=== PATIENT | male | born 1965 | race Caucasian/White ===

== ENCOUNTER 2017-01-19 08:00 | Emergency (ER) | payer BC ==
[2017-01-19] MEDS ORDERED: methylPREDNISolone Sodium Succinate 125 MG/2 ML SDV IVPUSH ONE (08:07)
[2017-01-19] MEDS ORDERED: Sodium Chloride 0.9% 10 ML Syringe FLUSH PRN (08:07)
[2017-01-19] MEDS ORDERED: Famotidine 20 MG/2 ML SDV IVPUSH ONE (08:07)
[2017-01-19] MEDS ORDERED: diphenhydrAMINE 50 MG/ML SDV IVPUSH ONE (08:07)
[2017-01-19] MEDS ORDERED: Sodium Chloride 0.9% 1,000 ML IV ONE (08:08)
--- NOTE | 2017-01-19 08:15 | EDM.PDOC ---
ED HPI GENERAL MEDICAL PROBLEM - General Chief Complaint: Allergic Reaction Stated Complaint: [id number] ITCHY FACE SWELLING IN NECK Time Seen by Provider: 01/19/17 08:08 Source of Information: Reports: Patient, RN, RN Notes Reviewed History Limitations: Reports: No Limitations - History of Present Illness INITIAL COMMENTS - FREE TEXT/NARRATIVE: Pt presents to ER with c/o facial itching and swelling of the face and neck which he noticed beginning last evening. He states he had grown a stapleton and his face was beginning to itch last night. He put cortisone cream on his face and he feels that seemed to make it worse, as his face and neck are now weeping. He states he does not know if he ate something that could have caused this. He denies any knowledge of any allergies, and denies any swelling of the tongue or difficulty breathing. Onset: Gradual Onset Date: 01/18/17 Duration: Getting Worse Location: Reports: Face, Neck - Related Data Allergies Allergy/AdvReac Type Severity Reaction Status Date / Time No Known Allergies Allergy Verified 02/14/13 17:40 Home Meds: Home Meds . [No Known Home Meds] 02/14/13 [History] ED ROS ALLERGIC REACTION - Review of Systems Review Of Systems: ROS reveals no pertinent complaints other than HPI. ED EXAM GENERAL NO PERIP PULSE - Physical Exam Exam: See Below Exam Limited By: No Limitations General Appearance: Alert, WD/WN, No Apparent Distress Eye Exam: Bilateral Eye: Normal Inspection Ears: Hearing Grossly Normal, Other (external ears swollen, erythematous, weeping). No: Normal External Exam Nose: Normal Inspection Throat/Mouth: Normal Inspection, Normal Lips, Normal Voice, No Airway Compromise , Perioral Cyanosis Head: Atraumatic Neck: Full Range of Motion, Other (angioedema, erythematous, weeping) Respiratory/Chest: No Respiratory Distress, Lungs Clear, Normal Breath Sounds, No Accessory Muscle Use, Chest Non-Tender Cardiovascular: Normal Peripheral Pulses, Regular Rate, Rhythm, No Edema, No Gallop, No JVD, No Murmur, No Rub GI/Abdominal: Normal Bowel Sounds, Soft, Non-Tender (Male) Exam: Deferred Rectal (Males) Exam: Deferred Back Exam: Normal Inspection, Full Range of Motion Extremities: Normal Inspection, Normal Range of Motion Neurological: Alert, Oriented, Normal Cognition, Normal Gait, Normal Reflexes, No Motor/Sensory Deficits Psychiatric: Normal Affect, Normal Mood Skin Exam: Erythema, Other (face, neck, ears, temples erythematous, edematous, weeping serous fluid) Lymphatic: No Adenopathy Course - Vital Signs Last Recorded V/S: Last Vital Signs Temp 98.5 F 01/19/17 08:53 Pulse 72 01/19/17 08:53 Resp 16 01/19/17 08:53 BP 136/84 01/19/17 08:53 Pulse Ox 97 01/19/17 08:53 - Orders/Labs/Meds Orders: Active Orders 24 hr Category Date Time Status Peripheral IV Care [RC] . DIRECTED Care 01/19/17 08:07 Active CULTURE WOUND [RM] Stat Lab 01/19/17 08:35 Received FUNGUS SKIN CULT [MREF] Stat Lab 01/19/17 08:32 Ordered Sodium Chloride 0.9% [Saline Flush] Med 01/19/17 08:07 Active 10 ml FLUSH ASDIRECTED PRN Peripheral IV Insertion Adult [OM.PC] Stat Oth 01/19/17 08:07 Ordered Medication Orders Sodium Chloride (Saline Flush) 10 ml FLUSH ASDIRECTED PRN PRN Reason: Keep Vein Open Last Admin: 01/19/17 08:32 Dose: 10 ml Labs: Laboratory Tests 01/19/17 01/19/17 01/19/17 Range/Units 08:47 08:47 08:47 WBC 8.4 (5.0-10.0) 10^3/uL RBC 4.60 (4.6-6.2) 10^6/uL Hgb 14.2 D (14.0-18.0) g/dL Hct 42.9 (40.0-54.0) % MCV 93.3 (80-100) fL MCH 30.9 (27.0-34.0) pg MCHC 33.1 (33.0-35.0) g/dL Plt Count 216 (150-450) 10^3/uL Neut % (Auto) 69.3 (42.2-75.2) % Lymph % (Auto) 17.8 L (20.5-50.1) % [place] % (Auto) 9.8 H (2-8) % Eos % (Auto) 3.0 (1.0-3.0) % Baso % (Auto) 0.1 (0.0-1.0) % Sodium 140 (135-145) mmol/L Potassium 4.1 (3.6-5.0) mmol/L Chloride 106 (101-111) mmol/L Carbon Dioxide 27.0 (21.0-31.0) mmol/L Anion Gap 11.1 BUN 16 (7-18) mg/dL Creatinine 0.8 (0.6-1.3) mg/dL Est Cr Clr Drug Dosing 123.46 mL/min Estimated GFR (MDRD) > 60 BUN/Creatinine Ratio 20.00 Glucose 88 (74-105) mg/dL Calcium 8.4 (8.4-10.2) mg/dl Total Bilirubin 0.9 (0.2-1.0) mg/dL AST 23 (10-42) IU/L ALT 23 (10-60) IU/L Alkaline Phosphatase 44 (42-121) IU/L C-Reactive Protein 0.9 (0.0-1.3) mg/dL Total Protein 6.6 L (6.7-8.2) g/dl Albumin 3.7 (3.2-5.5) g/dl Globulin 2.9 Albumin/Globulin Ratio 1.28 Meds: Medications Generic Name Dose Route Start Last Admin Trade Name Freq PRN Reason Stop Dose Admin Sodium Chloride 10 ml 01/19/17 08:07 01/19/17 08:32 Saline Flush FLUSH 10 ml ASDIRECTED PRN Administration Keep Vein Open Discontinued Medications Generic Name Dose Route Start Last Admin Trade Name Freq PRN Reason Stop Dose Admin Diphenhydramine HCl 50 mg 01/19/17 08:07 01/19/17 08:31 Benadryl IVPUSH 01/19/17 08:08 50 mg ONETIME ONE Administration Famotidine 20 mg 01/19/17 08:07 01/19/17 08:29 Pepcid IVPUSH 01/19/17 08:08 20 mg ONETIME ONE Administration Sodium Chloride 1,000 mls @ 999 mls/hr 01/19/17 08:08 01/19/17 08:26 Normal Saline IV 01/19/17 09:08 999 mls/hr .BOLUS ONE Administration Methylprednisolone Sodium Succinate 125 mg 01/19/17 08:07 01/19/17 08:27 Solu-Medrol IVPUSH 01/19/17 08:08 125 mg ONETIME ONE Administration Departure - Departure Time of Disposition: 09:41 Disposition: Home, Self-Care 01 Condition: Fair Clinical Impression: Contact dermatitis Qualifiers: Contact dermatitis type: allergic Contact dermatitis trigger: unspecified trigger Qualified Code(s): L23.9 - Allergic contact dermatitis, unspecified cause - Discharge Information Instructions: Contact Dermatitis, [id number] Forms: ED Department Discharge Additional Instructions: RX: Bactroban If your cultures grow a fungus or bacteria, you will be notified. Follow up with your primary care facility. May dab areas of the skin with water and gauze to clean. - My Orders Last 24 Hours: My Active Orders 01/19/17 08:07 Peripheral IV Care [RC] . DIRECTED Sodium Chloride 0.9% [Saline Flush] 10 ml FLUSH ASDIRECTED PRN Peripheral IV Insertion Adult [OM.PC] Stat 01/19/17 08:32 FUNGUS SKIN CULT [MREF] Stat 01/19/17 08:35 CULTURE WOUND [RM] Stat - Assessment/Plan Last 24 Hours: My Active Orders 01/19/17 08:07 Peripheral IV Care [RC] . DIRECTED Sodium Chloride 0.9% [Saline Flush] 10 ml FLUSH ASDIRECTED PRN Peripheral IV Insertion Adult [OM.PC] Stat 01/19/17 08:32 FUNGUS SKIN CULT [MREF] Stat 01/19/17 08:35 CULTURE WOUND [RM] Stat
[2017-01-19 09:13] LABS: CHLORIDE,CL 106 mmol/L (101-111); SODIUM,NA 140 mmol/L (135-145)
== END 2017-01-19 09:55 | disposition home or self-care (01) ==
LOC: DL.ED 08:00
DX: L23.9 Allergic contact dermatitis, unspecified cause (principal)
CPT/HCPCS: 36415; 80053; 85025; 86140; 87070; 96361; 96374; 96375; 99284; J1200; J2930; J7030; J7050; 87101; 87102; S0028

== ENCOUNTER → 2020-07-07 | Day surgery (SDC) | payer BC ==
[~2020-07-07] MED LIST: Dextrose 5%-0.45% NaCl 1,000 ML IV SCH; Midazolam 1 MG/ML 2 ML SDV IV ONE; Midazolam 1 MG/ML 2 ML SDV ONE; Sodium Chloride 0.9% 10 ML Syringe FLUSH PRN; fentaNYL 100 MCG/2 ML SDV IV ONE; fentaNYL 100 MCG/2 ML SDV ONE
--- NOTE | 2020-07-07 11:01 | OR ---
DATE: 07/07/2020 PROCEDURE: Total colonoscopy. INSTRUMENT USED: CF-ED130L Olympus video colonoscope. PREMEDICATIONS: Fentanyl 150 mcg intravenous, Versed 4 mg intravenous, nasal O2 cannula. The procedure was done under pulse oximetry, BP recording, and dining services manager. INDICATION: Screening colonoscopic examination is done for detection of any polypoid lesions and removal, endoscopic hemostasis therapy if needed. DESCRIPTION OF PROCEDURE: Initial rectal exam showed some anal sphincter spasm. Limited rigid anoscopic examination is unremarkable. The colonoscope was passed with ease. Scattered diverticula were noted in the distal left colon along with some deformity. The scope was passed with ease up to the ileocecal area. Photographs were taken of the normal-appearing cecum, identified by landmarks of appendiceal orifice and double-bulged ileocecal folds. The bowel preparation was found to be adequate, [place] scale 2 in right colon and 3 in other areas of the colon, total score 8. No stricture. No vascular ectasia. No large isolated ulcerations seen. No evidence of diffuse inflammatory bowel disease in the form of friability, contact bleeding, or ulcerations. No polyp or tumor mass identified. Probing the proximal sides of folds and flexures using adequate distention and clearing up the stool material, withdrawal of the scope was made, cecum to rectum time over 6 minutes. No bleeding was noted from any of the visualized areas at the completion of examination. IMPRESSION: Diverticulosis. The patient tolerated the procedure well. [facility] /[id number]
== END ==
LOC: DL.ENDO 05:50
PROVIDERS: ATTEND Internal Medicine Gastroenterology
DX: Z12.11 Encounter for screening for malignant neoplasm of colon (principal); K57.30 Diverticulosis of large intestine without perforation or abscess without bleeding
CPT/HCPCS: 45378; J2250; J3010; J7042